=== PATIENT | female | born 1985 | race Caucasian/White ===

== ENCOUNTER 2020-12-17 09:20 | Inpatient (IN) | payer MEDICAID ==
[2020-12-17] MEDS ORDERED: Sodium Chloride 0.9% 10 ML Syringe FLUSH PRN (11:02)
[2020-12-17] MEDS ORDERED: Citric Acid/Sodium Citrate Solution 30 ML Cup PO ONE (11:02)
[2020-12-17] MEDS ORDERED: Sodium Chloride 0.9% 2.5 ML Syringe FLUSH PRN (11:02)
[2020-12-17] MEDS ORDERED: Sodium Chloride 0.9% 10 ML SDV IV PRN (11:02)
[2020-12-17] MEDS ORDERED: ceFAZolin 1 GM Vial IV ONE (11:10)
[2020-12-17] MEDS ORDERED: Oxytocin/0.9 % Sodium Chloride 30 UNIT/500 ML BAG IV SCH (11:15)
[2020-12-17] MEDS ORDERED: Phenylephrine 1% 10 MG/ML SDV ONE (11:53)
[2020-12-17] MEDS ORDERED: Ketorolac 30 MG/ML SDV ONE (11:53)
[2020-12-17] MEDS ORDERED: Oxytocin 10 Units/1 ML SDV ONE (11:53)
[2020-12-17] MEDS ORDERED: Ondansetron 4 MG/2 ML SDV ONE (11:53)
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
[2020-12-17] MEDS: Lactated Ringers 1,000 ML IV SCH ×3 (12:00→15:20)
[2020-12-17] MEDS ORDERED: Morphine PF 10 MG/10 ML SDV ONE ×2 (12:12→22:11)
[2020-12-17] MEDS: Ketorolac 30 MG/ML SDV IVPUSH SCH ×2 (13:50→20:21)
[2020-12-17] MEDS ORDERED: Ondansetron 4 MG/2 ML SDV IVPUSH PRN (14:20)
[2020-12-17] MEDS ORDERED: Methylergonovine 0.2 MG/1 ML Amp IM PRN (14:20)
[2020-12-17] MEDS ORDERED: diphenhydrAMINE 50 MG/ML SDV IVPUSH PRN (14:20)
[2020-12-17] MEDS ORDERED: Bisacodyl 10 MG Supp RECTAL PRN (14:20)
[2020-12-17] MEDS ORDERED: Misoprostol 200 MCG Tab RECTAL PRN (14:20)
[2020-12-17] MEDS ORDERED: Oxytocin 10 Units/1 ML SDV IM PRN (14:20)
[2020-12-17] MEDS ORDERED: Ibuprofen 800 MG Tab PO PRN (14:20)
[2020-12-17] MEDS ORDERED: Lanolin 100% Cream 7 GM Tube TOP PRN (14:20)
[2020-12-17] MEDS ORDERED: Tranexamic Acid 1,000 MG in Sodium Chloride 0.9% 100 ML IV PRN (14:20)
[2020-12-17] MEDS ORDERED: Acetaminophen/oxyCODONE 325-5 MG Tab PO PRN ×2 (14:20)
[2020-12-17] MEDS ORDERED: Oxytocin/Lactated Ringers 30 UNIT/500 ML BAG IV SCH (14:30)
--- NOTE | 2020-12-17 14:33 | PCM.OPNOTE ---
- General Post-Op/Procedure Note Date of Surgery/Procedure: 12/17/20 Operative Procedure(s): Tertiary Lower segment transverse cesearean section Findings: Live Male delivered at 1318am 4 /8 Weight 4090g Stat done due to HR in 70s after spinal . Skin incision 1312 , Deli very 1318 Pre Op Diagnosis: 35yo @ 40w2d for Tertiary . Poor Complaince to [facility] Post-Op Diagnosis: Same Anesthesia Technique: Spinal Primary Surgeon: Fernando Ba Anesthesia Provider: Montana Torres Emergency Room Technician: Fina Parish Pathology: Placenta Fluid Replacement, Intraop: 2,800 Output, Urine Amount: 100 EBL in mLs: 600 Complications: None Condition: Good Free Text/Narrative:: Intake & Output 12/16/20 12/17/20 12/17/20 22:59 06:59 14:59 Output Total Balance @
[2020-12-17] MEDS: Nalbuphine 10 MG/1 ML Vial IVPUSH PRN ×2 (17:14→20:15)
[2020-12-17] MEDS ORDERED: Famotidine 20 MG/2 ML SDV ONE (19:38)
[2020-12-17] MEDS: Docusate Sodium 100 MG Cap PO SCH (20:15)
[2020-12-17] MEDS ORDERED: Nicotine 14 MG/24 Hr Patch TRDERM SCH (22:45)
[2020-12-18] MEDS: Lactated Ringers 1,000 ML IV SCH (00:46)
[2020-12-18] MEDS: Ketorolac 30 MG/ML SDV IVPUSH SCH ×2 (02:20→08:35)
--- NOTE | 2020-12-18 07:34 | PCM48HPAN ---
Post Anesthesia Note - EVALUATION WITHIN 48HRS OF ANESTHETIC Vital Signs in Normal Range: Yes (SAT 96% on 2L NC while sleeping) Patient Participated in Evaluation: Yes Respiratory Function Stable: Yes Airway Patent: Yes Cardiovascular Function Stable: Yes Hydration Status Stable: Yes Pain Control Satisfactory: Yes (Reports adequate pain control) Nausea and Vomiting Control Satisfactory: Yes (Taking PO well, denies nausea) Mental Status Recovered: Yes Vital Signs: Last Vital Signs Temp 36.1 C 12/18/20 04:32 Pulse 71 12/18/20 04:32 Resp 16 12/18/20 07:00 BP 115/66 12/18/20 04:32 Pulse Ox 96 12/18/20 07:00 - COMMENTS/OBSERVATIONS Free Text/Narrative:: Reports full return of strength and sensation in BLE, ambulating without assist.
[2020-12-18] MEDS: Docusate Sodium 100 MG Cap PO SCH (08:34)
--- NOTE | 2020-12-18 08:43 | OR ---
SURGEON: ANTHONY CROWE DATE OF PROCEDURE: 12/17/2020 PREOPERATIVE DIAGNOSES: A 35-year-old G6, P3-0-2-3 at 40 weeks and 2 days for tertiary section. POSTOPERATIVE DIAGNOSES: A 35-year-old G6, P3-0-2-3 at 40 weeks and 2 days for tertiary section. PROCEDURE: Stat Tertiary lower segment section. ESTIMATED BLOOD LOSS: 600. INTRAVENOUS FLUIDS: 2800. URINE OUTPUT: 100. ANAESTHESIA: Spinal NOTES AND FINDINGS: A live male delivered at 1318, scores are 4 and 8. Weight is 4090 g. Skin incision 1312 , delivery 1318 BRIEF HISTORY ABOUT THE PATIENT: She is a 35-year-old G6, P3-0-2-3 at 40 weeks and 2 days who was late to care at about 33 weeks. She came in and she thought she was about 12 weeks However, ultrasound showed in third trimester. The patient had 4 visits. She missed a couple of appointments, and presented at 40 weeks. At this point, she was scheduled for sectionAfter she recieved the spinal in the OR . hearth rate was in the Got into the OR after getting the spinal anesthesia. The patient noted to have decelerations into the 70s. As a result, Betadine was poured and quickly draped. PROCEDURE: A lower transverse incision was made and carried down to the fascia with the scalpel. , and the fascia was opened with Castillo and extended upwards by manual traction. The rectus muscle was in the midline. . The peritoneum was then entered in bluntly . The Huey was then placed. A lower uterine incision was made with a scalpel and extended laterally via manual traction The infant was in cephalic presentation and brought to the level of the incision.With fundal pressure the head was delivered then the body. The nose and mount was suctioned, The Cord was clamped and cut. Cord blood gases were obtained. and the infant was handed over to the nursery team. . Placenta was delivered by removal of the placenta and massage of the uterus. The uterus was closed in 2 layers, first layer with 0 Vicryl, second layer with 0 Monocryl. The Huey was then removed. The gutters were cleaned, and the incision was inspected and noted to be hemostatic. Then, peritoneum was closed with 2-0 Vicryl. The fascia was closed with 0 Vicryl, and the subcutaneous fat was closed with plain gut. Skin was closed with 3-0 Monocryl on a Buck needle. All instrument and pad counts were correct x2. DULCE / PATRICIO /[id number] MTDD
[2020-12-18] MEDS ORDERED: Sertraline 100 MG Tab PO SCH (09:00)
--- NOTE | 2020-12-18 11:16 | PCM.PNPP ---
- General Info Date of Service: 12/18/20 Subjective Update: 35yo P4 s/p tertiary POD 1 She is doing well, she is ambulating , voiding and tolerating regular diet SHe has good pain control SHe is yet to pump Her transferred to [facility] yesterday Functional Status: Reports: Pain Controlled (35), Tolerating Diet, Ambulating, Urinating - Review of Systems General: Reports: No Symptoms HEENT: Reports: No Symptoms Pulmonary: Reports: No Symptoms Cardiovascular: Reports: No Symptoms Gastrointestinal: Reports: No Symptoms Genitourinary: Reports: No Symptoms Musculoskeletal: Reports: No Symptoms Skin: Reports: No Symptoms Neurological: Reports: No Symptoms Psychiatric: Reports: No Symptoms - General Info Date of Service: 12/18/20 - Patient Data Vital Signs - Most Recent: Last Vital Signs Temp 36.1 C 12/18/20 08:00 Pulse 77 12/18/20 08:00 Resp 18 12/18/20 08:00 BP 120/67 12/18/20 08:00 Pulse Ox 98 12/18/20 08:00 Weight - Most Recent: 90.718 kg I&O - Last 24 Hours: Intake & Output 12/17/20 12/18/20 12/18/20 22:59 06:59 14:59 Intake Total 1000 Output Total 225 1000 Balance -225 0 Lab Results - Last 24 Hours: Laboratory Results - last 24 hr 12/17/20 12/17/20 12/17/20 Range/Units 10:50 10:50 13:18 WBC 10.27 (4.0-11.0) K/uL RBC 3.16 L (4.30-5.90) M/uL Hgb 9.5 L (12.0-16.0) g/dL Hct 29.2 L (36.0-46.0) % MCV 92.4 (80.0-98.0) fL MCH 30.1 (27.0-32.0) pg MCHC 32.5 (31.0-37.0) g/dL RDW Std Deviation 49.6 (28.0-62.0) fl RDW Coeff of Helga 15 (11.0-15.0) % Plt Count 283 (150-400) K/uL MPV 10.90 (7.40-12.00) fL Nucleated RBC % 0.7 /100WBC Nucleated RBCs # 0 K/uL Cord ABG pH 7.089 L (7.18-7.38) Cord ABG Base Excess -9 (-10--2) Cord VBG pH 7.128 L (7.25-7.45) Cord VBG Base Excess -9 (-10--2) Urine Opiates Screen (NEGATIVE) Ur Oxycodone Screen (NEGATIVE) Urine Methadone Screen (NEGATIVE) Ur Barbiturates Screen (NEGATIVE) Ur Phencyclidine Scrn (NEGATIVE) Ur Amphetamine Screen (NEGATIVE) U Methamphetamines Scrn (NEGATIVE) U Benzodiazepines Scrn (NEGATIVE) U Cocaine Metab Screen (NEGATIVE) U Marijuana (THC) Screen (NEGATIVE) Blood Type O POSITIVE Antibody Screen NEGATIVE 12/17/20 12/18/20 Range/Units 14:30 06:31 WBC (4.0-11.0) K/uL RBC (4.30-5.90) M/uL Hgb 8.9 L (12.0-16.0) g/dL Hct 27.8 L (36.0-46.0) % MCV (80.0-98.0) fL MCH (27.0-32.0) pg MCHC (31.0-37.0) g/dL RDW Std Deviation (28.0-62.0) fl RDW Coeff of Helga (11.0-15.0) % Plt Count (150-400) K/uL MPV (7.40-12.00) fL Nucleated RBC % /100WBC Nucleated RBCs # K/uL Cord ABG pH (7.18-7.38) Cord ABG Base Excess (-10--2) Cord VBG pH (7.25-7.45) Cord VBG Base Excess (-10--2) Urine Opiates Screen NEGATIVE (NEGATIVE) Ur Oxycodone Screen NEGATIVE (NEGATIVE) Urine Methadone Screen NEGATIVE (NEGATIVE) Ur Barbiturates Screen NEGATIVE (NEGATIVE) Ur Phencyclidine Scrn NEGATIVE (NEGATIVE) Ur Amphetamine Screen NEGATIVE (NEGATIVE) U Methamphetamines Scrn NEGATIVE (NEGATIVE) U Benzodiazepines Scrn POSITIVE (NEGATIVE) U Cocaine Metab Screen NEGATIVE (NEGATIVE) U Marijuana (THC) Screen POSITIVE (NEGATIVE) Blood Type Antibody Screen Med Orders - Current: Current Medications Bisacodyl (Bisacodyl 10 Mg Supp) 10 mg RECTAL ONETIME PRN PRN Reason: Constipation Diphenhydramine HCl (Diphenhydramine 50 Mg/Ml Sdv) 25 mg IVPUSH Q6H PRN PRN Reason: Itching or Nausea Last Admin: 12/18/20 00:39 Dose: 25 mg Documented by: Docusate Sodium (Docusate Sodium 100 Mg Cap) 100 mg PO BID [facility] Last Admin: 12/18/20 08:34 Dose: 100 mg Documented by: Emollient Ointment (Lanolin 100% Cream 7 Gm Tube) 0 gm TOP ASDIRECTED PRN PRN Reason: Sore Nipples Lactated Ringer's (Ringers, Lactated) 1,000 mls @ 125 mls/hr IV ASDIRECTED [facility] Last Admin: 12/18/20 00:46 Dose: 125 mls/hr Documented by: Ibuprofen (Ibuprofen 800 Mg Tab) 800 mg PO Q8H PRN PRN Reason: mild pain or fever Ketorolac Tromethamine (Ketorolac 30 Mg/Ml Sdv) 30 mg IVPUSH Q6H [facility] Stop: 12/18/20 14:31 Last Admin: 12/18/20 08:35 Dose: 30 mg Documented by: Nalbuphine HCl (Nalbuphine 10 Mg/1 Ml Vial) 5 mg IVPUSH Q3H PRN PRN Reason: Pruritis Stop: 12/18/20 11:58 Last Admin: 12/17/20 20:15 Dose: 5 mg Documented by: Nicotine (Nicotine 14 Mg/24 Hr Patch) 14 mg TRDERM DAILY [facility] Last Admin: 12/17/20 22:58 Dose: 14 mg Documented by: Ondansetron HCl (Ondansetron 4 Mg/2 Ml Sdv) 4 mg IVPUSH Q4H PRN PRN Reason: Nausea/Vomiting Oxycodone/Acetaminophen (Acetaminophen/Oxycodone 325-5 Mg Tab) 1 tab PO Q4H PRN PRN Reason: Pain (moderate 4-6) Oxycodone/Acetaminophen (Acetaminophen/Oxycodone 325-5 Mg Tab) 2 tab PO Q4H PRN PRN Reason: Pain (moderate 4-6) Sertraline HCl (Sertraline 100 Mg Tab) 100 mg PO DAILY [facility] Last Admin: 12/18/20 08:34 Dose: 100 mg Documented by: Sodium Chloride (Sodium Chloride 0.9% 10 Ml Syringe) 10 ml FLUSH ASDIRECTED PRN PRN Reason: Keep Vein Open Sodium Chloride (Sodium Chloride 0.9% 2.5 Ml Syringe) 2.5 ml FLUSH ASDIRECTED PRN PRN Reason: Keep Vein Open Sodium Chloride (Sodium Chloride 0.9% 10 Ml Sdv) 10 ml IV ASDIRECTED PRN PRN Reason: IV Use Discontinued Medications Citric Acid/Sodium Citrate (Citric Acid/Sodium Citrate Solution 30 Ml Cup) 30 ml PO ONETIME ONE Stop: 12/17/20 11:03 Last Admin: 12/17/20 12:37 Dose: 30 ml Documented by: Famotidine (Famotidine 20 Mg/2 Ml Sdv) Confirm Administered Dose 20 mg .ROUTE .STK-MED ONE Stop: 12/17/20 19:39 Oxytocin/Sodium Chloride (Oxytocin 30 Unit/500 Ml-Ns) 30 unit in 500 mls @ 250 mls/hr IV TITRATE GEOFFREY Lactated Ringer's (Ringers, Lactated) 1,000 mls @ 500 mls/hr IV BOLUS GEOFFREY Last Admin: 12/17/20 12:38 Dose: 999 mls/hr Documented by: Cefazolin Sodium 3 gm/ Sodium (Chloride) 50 mls @ 100 mls/hr IV ONCALL GEOFFREY Oxytocin/Lactated Ringer's (Pitocin In Lr 30 Units/500 Ml) 30 unit in 500 mls @ 2 mls/hr IV TITRATE GEOFFREY; Protocol Tranexamic Acid 1,000 mg/ (Sodium Chloride) 110 mls @ 660 mls/hr IV ONETIME PRN PRN Reason: Bleeding Ketorolac Tromethamine (Ketorolac 30 Mg/Ml Sdv) Confirm Administered Dose 30 mg .ROUTE .STK-MED ONE Stop: 12/17/20 11:54 Methylergonovine Maleate (Methylergonovine 0.2 Mg/1 Ml Amp) 0.2 mg IM ONETIME PRN PRN Reason: Excessive Vaginal Bleeding Misoprostol (Misoprostol 200 Mcg Tab) 1,000 mcg RECTAL ONETIME PRN PRN Reason: excessive bleeding Morphine Sulfate (Morphine Pf 10 Mg/10 Ml Sdv) Confirm Administered Dose 10 mg .ROUTE .STK-MED ONE Stop: 12/17/20 12:13 Last Admin: 12/18/20 08:22 Dose: Not Given Documented by: Morphine Sulfate (Morphine Pf 10 Mg/10 Ml Sdv) Confirm Administered Dose 10 mg .ROUTE .STK-MED ONE Stop: 12/17/20 22:12 Last Admin: 12/18/20 08:22 Dose: Not Given Documented by: Ondansetron HCl (Ondansetron 4 Mg/2 Ml Sdv) Confirm Administered Dose 4 mg .R OUTE .STK-MED ONE Stop: 12/17/20 11:54 Oxytocin (Oxytocin 10 Units/1 Ml Sdv) Confirm Administered Dose 20 unit .ROUTE .STK-MED ONE Stop: 12/17/20 11:54 Oxytocin (Oxytocin 10 Units/1 Ml Sdv) 10 unit IM ASDIRECTED PRN PRN Reason: Excessive Vaginal Bleeding Phenylephrine HCl (Phenylephrine 1% 10 Mg/Ml Sdv) Confirm Administered Dose 10 mg .ROUTE .STK-MED ONE Stop: 12/17/20 11:54 - Infant Interaction Support Person: Sister, Significant Other - Recovery Exam Fundal Tone: Firm Fundal Level: 1 Fingerbreadths Below Umbilicus Fundal Placement: Midline Lochia Amount: Scant Lochia Color: Rubra/Red Perineum Description: Intact, Minimal Bruising/Swelling Episiotomy/Laceration: None Bladder Status: Indwelling Catheter in Place Urinary Elimination: Indwelling Catheter - Exam General: Alert, Oriented HEENT: Pupils Equal Neck: Supple Lungs: Clear to Auscultation, Normal Respiratory Effort Cardiovascular: Regular Rate, Regular Rhythm GI/Abdominal Exam: Normal Bowel Sounds Extremities: Normal Inspection Wound/Incisions: Dressing Dry and Intact - Problem List & Annotations (1) delivery delivered SNOMED Code(s): 099157834 Code(s): O82 - ENCOUNTER FOR DELIVERY WITHOUT INDICATION Status: Acute Current Visit: No - Problem List Review Problem List Initiated/Reviewed/Updated: Yes - My Orders Last 24 Hours: My Active Orders 12/17/20 10:50 RPR (SYPHILIS SERO) W/ RFLX [REF] Routine 12/17/20 11:02 Sodium Chloride 0.9% [Normal Saline] 10 ml IV ASDIRECTED PRN Sodium Chloride 0.9% [Saline Flush] 10 ml FLUSH ASDIRECTED PRN Sodium Chloride 0.9% [Saline Flush] 2.5 ml FLUSH ASDIRECTED PRN Peripheral IV Insertion Adult [OM.PC] Routine Schedule Procedure [COMM] Per Unit Routine 12/17/20 11:08 Notify Provider Vital Signs [RC] PRN 12/17/20 14:20 Notify Provider Intake and Out [RC] ASDIRECTED Notify Provider Vital Signs [RC] ASDIRECTED Acetaminophen/oxyCODONE [Percocet 325-5 MG] 1 tab PO Q4H PRN Acetaminophen/oxyCODONE [Percocet 325-5 MG] 2 tab PO Q4H PRN Lanolin [Lansinoh HPA] See Dose Instructions TOP ASDIRECTED PRN Ondansetron [Zofran] 4 mg IVPUSH Q4H PRN bisacodyL [Dulcolax] 10 mg RECTAL ONETIME PRN diphenhydrAMINE [Benadryl] 25 mg IVPUSH Q6H PRN Resuscitation Status Routine 12/17/20 14:21 Patient Status [ADT] Routine Ambulate [RC] PER UNIT ROUTINE May Shower [RC] ASDIRECTED RT Incentive Spirometry [RC] Q2HWA Vital Signs [RC] PER UNIT ROUTINE Assess Lochia [WOMSER] Per Unit Routine Assess Uterine Involution [WOMSER] Per Unit Routine Breast Pump [WOMSER] Per Unit Routine Peripheral IV Discontinue [OM.PC] Routine Sequential Compression Device [OM.PC] Per Unit Routine 12/17/20 14:22 Antiembolic Devices [RC] PER UNIT ROUTINE 12/17/20 14:30 Ketorolac [Toradol] 30 mg IVPUSH Q6H Lactated Ringers [Ringers, Lactated] 1,000 ml IV ASDIRECTED 12/17/20 Dinner Regular Diet [DIET] 12/17/20 21:00 Docusate Sodium [Colace] 100 mg PO BID 12/18/20 09:00 Sertraline [Zoloft] 100 mg PO DAILY 12/18/20 21:00 Ibuprofen [Motrin] 800 mg PO Q8H PRN - Assessment Assessment:: 35yo [id number] POD 1 s/p Tertiary , Met all post operative goals [place] transfered UTOX positive for Marijuana and Benzodiazepine [place] - asymptomatic - Plan Plan:: Discharge home today Pain control with tylenol , percocet and motrin as needed Iron and Colace Incentive spirometru Want to be D/C today WIll D/C today
[2020-12-18] MEDS ORDERED: Ibuprofen 800 MG Tab PO PRN (21:00)
== END 2020-12-18 14:32 | disposition home or self-care (01) | DRG 787 ==
LOC: MW.OB 09:20
PROVIDERS: ADMIT Obstetrics & Gynecology; ATTEND Obstetrics & Gynecology
PROC: 10D00Z1 Extraction of Products of Conception, Low, Open Approach (ICD-10-PCS; principal; 2020-12-17)
DX: O34.211 Maternal care for low transverse scar from previous cesarean delivery (principal); O99.324 Drug use complicating childbirth; O48.0 Post-term pregnancy; O99.824 Streptococcus B carrier state complicating childbirth; O99.02 Anemia complicating childbirth; D64.9 Anemia, unspecified; F12.90 Cannabis use, unspecified, uncomplicated; F15.90 Other stimulant use, unspecified, uncomplicated; O99.214 Obesity complicating childbirth; E66.9 Obesity, unspecified; O99.334 Smoking (tobacco) complicating childbirth; F17.210 Nicotine dependence, cigarettes, uncomplicated; O99.344 Other mental disorders complicating childbirth; F41.9 Anxiety disorder, unspecified; F32.9 Major depressive disorder, single episode, unspecified; Z91.012 Allergy to eggs; Z3A.40 40 weeks gestation of pregnancy; Z37.0 Single live birth
CPT/HCPCS: 01961; 36415; 51702; 59025; 80305-QW; 82803; 85014; 85018; 85027; 86592; 86850; 86900; 86901; A9270-GY; J1200; J1885; J2270; J2300; J2370; J2405; J2590; J3490; J7120